=== PATIENT | male | born 1960 | race Caucasian/White ===

== ENCOUNTER 2020-11-05 18:54 | Emergency (ER) | payer MEDICARE, MEDICAID ==
[2020-11-05] MEDS ORDERED: HYDROmorphone 1 MG/ML Syringe IVPUSH ONE ×2 (19:26→20:37)
[2020-11-05] MEDS ORDERED: Cyclobenzaprine 10 MG Tab ONE (20:55)
[2020-11-05] MEDS ORDERED: Acetaminophen/oxyCODONE 325-5 MG Tab ONE (20:55)
[2020-11-05] MEDS ORDERED: Orphenadrine 60 MG/2 ML Inj IM ONE (21:03)
[2020-11-05] MEDS ORDERED: Take Home: Acetaminophen/oxyCODONE 325-5 MG, 2 Tab Pack PO ONE (21:03)
[2020-11-05] MEDS ORDERED: Take Home: Cyclobenzaprine 10 MG Tab, 4 Tab Pack PO ONE (21:07)
--- NOTE | 2020-11-05 21:09 | EDM.PDOC ---
ED HPI GENERAL MEDICAL PROBLEM - General Chief Complaint: General Stated Complaint: R) shoulder pain Time Seen by Provider: 11/05/20 18:54 Source of Information: Reports: Patient History Limitations: Reports: No Limitations - History of Present Illness INITIAL COMMENTS - FREE TEXT/NARRATIVE: He presents per [facility]. 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 Questions if he dislocated his shoulder. He had a total shoulder done in March [address] in [place] with Dr. Root at [facility] in [place]. He states the pain is severe at this time. If he tries to move it the pain is worse. He denies any pain down his arm or numbness. He denies any other trauma and has not fallen. Onset: Sudden Onset Date: 11/05/20 Location: Reports: Upper Extremity, Right Quality: Reports: Sharp, Stabbing Right Shoulder Pain Score (Numeric/FACES): 10 - Related Data Allergies Allergy/AdvReac Type Severity Reaction Status Date / Time Iodinated Contrast Media Allergy Swelling Verified 11/05/20 19:07 iopamidol [From Isovue-M] Allergy Change Verified 11/05/20 19:07 Mental Status Penicillins Allergy Anaphylactic Verified 11/05/20 19:07 Shock Home Meds: Home Meds Aspirin [Halfprin] 81 mg PO DAILY 08/28/19 [History] DULoxetine [Cymbalta] 60 mg PO BEDTIME 08/28/19 [History] Donepezil HCl [Aricept] 10 mg PO BEDTIME 08/28/19 [History] Levothyroxine 12.5 mg PO DAILY 08/28/19 [History] Loperamide [Imodium] 2 mg PO QID PRN 08/28/19 [History] Metoprolol Succinate [Toprol XL] 25 mg PO DAILY 08/28/19 [History] Mirtazapine 7.5 mg PO DAILY 08/28/19 [History] Pantoprazole Sodium [Protonix] 20 mg PO BID 08/28/19 [History] Pramipexole [Mirapex] 0.25 mg PO TID 08/28/19 [History] Pregabalin [Lyrica] 100 mg PO TID 08/28/19 [History] Sildenafil [Viagra] 100 mg PO DAILY PRN 08/28/19 [History] Vilazodone [Viibryd] 40 mg PO DAILY 08/28/19 [History] atorvaSTATin [Lipitor] 40 mg PO DAILY 08/28/19 [History] buPROPion HCL [Wellbutrin Xl] 150 mg PO DAILY 08/28/19 [History] Ibuprofen 800 mg PO ASDIRECTED 09/09/19 [History] Past Medical History Cardiovascular History: Reports: CAD, High Cholesterol, Hypertension, Stents Respiratory History: Reports: None Gastrointestinal History: Reports: GERD, Pancreatitis, Other (See Below) Other Gastrointestinal History: pancreatic problems Genitourinary History: Reports: None Musculoskeletal History: Reports: Fibromyalgia, Other (See Below) Other Musculoskeletal History: RIGHT SHOULDER TENINITIS. Right shoulder replacement 2020 Neurological History: Reports: Neuropathy, Peripheral, Parkinson's, Other (See Below) Other Neuro History: DEMENTIA. RESTLESS LEG SYNDROME Psychiatric History: Reports: Depression Endocrine/Metabolic History: Reports: Hypothyroidism, Obesity/BMI 30+ Other Endocrine/Metabolic History: hx of hypoglycemia, not diagnosed with anything specific Hematologic History: Reports: None Immunologic History: Reports: None Oncologic (Cancer) History: Reports: None Dermatologic History: Reports: None - Infectious Disease History Infectious Disease History: Reports: Chicken Pox - Past Surgical History Head Surgeries/Procedures: Reports: None HEENT Surgical History: Reports: Oral Surgery, Other (See Below) Other HEENT Surgeries/Procedures: eye lid lift Cardiovascular Surgical History: Reports: Coronary Artery Bypass, Coronary Artery Stent Other Cardiovascular Surgeries/Procedures: triple bypass in 1999 GI Surgical History: Reports: Cholecystectomy, Colonoscopy, EGD, Hernia Repair/Other Male Surgical History: Reports: None Endocrine Surgical History: Reports: None Neurological Surgical History: Reports: None Musculoskeletal Surgical History: Reports: Arthroscopic Knee, Shoulder Surgery Oncologic Surgical History: Reports: None Dermatological Surgical History: Reports: None Social & Family History - Family History Family Medical History: No Pertinent Family History - Tobacco Use Tobacco Use Status *Q: Current Some Day Tobacco User Years of Tobacco use: 2 Packs/Tins Daily: 2 - Caffeine Use Caffeine Use: Reports: Coffee Caffeine Use Comment: 6 cups daily - Recreational Drug Use Recreational Drug Use: Yes Recreational Drug Type: Reports: Marijuana/Hashish - Living Situation & Occupation Occupation: Employed ED ROS GENERAL - Review of Systems Review Of Systems: See Below Constitutional: Reports: No Symptoms Respiratory: Reports: No Symptoms Cardiovascular: Reports: No Symptoms GI/Abdominal: Reports: No Symptoms Musculoskeletal: Reports: Shoulder Pain Skin: Reports: No Symptoms Neurological: Reports: No Symptoms ED EXAM, GENERAL - Physical Exam Exam: See Below General Appearance: Alert, WD/WN, Severe Distress Respiratory/Chest: No Respiratory Distress, Lungs Clear, Normal Breath Sounds Cardiovascular: Regular Rate, Rhythm, No Edema Peripheral Pulses: 4+: Radial (L), Radial (R) Extremities: Other (Right shoulder is very tender with palpation or movement. He states that if he moves it he has severe spasms to the area. He has a swelling to the posterior shoulder that is protruding. It is soft to touch but very tender. Good sensation noted distally. Has full ROM to the hand and wrist.) Neurological: Alert, Oriented Skin Exam: Warm, Dry, Intact Course - Vital Signs Last Recorded V/S: Last Vital Signs Temp 98 F 11/05/20 18:57 Pulse 66 11/05/20 18:57 Resp 18 11/05/20 18:57 BP 125/91 H 11/05/20 18:57 Pulse Ox 95 11/05/20 18:57 - Orders/Labs/Meds Meds: Medications Discontinued Medications Generic Name Dose Route Start Last Admin Trade Name Jesse PRN Reason Stop Dose Admin Cyclobenzaprine HCl 1 packet 11/05/20 21:07 Take Home: Cyclobenzaprine 10 Mg, 4 Tab Pack PO 11/05/20 21:08 ONETIME ONE Cyclobenzaprine HCl 40 mg 11/05/20 20:55 Flexeril .ROUTE 11/05/20 20:56 .STK-MED ONE Hydromorphone HCl 2 mg 11/05/20 19:26 11/05/20 19:33 Dilaudid IVPUSH 11/05/20 19:27 2 mg ONETIME ONE Administration Hydromorphone HCl 2 mg 11/05/20 20:37 11/05/20 20:45 Dilaudid IVPUSH 11/05/20 20:38 2 mg ONETIME ONE Administration Orphenadrine Citrate 60 mg 11/05/20 21:03 11/05/20 21:07 Norflex IM 11/05/20 21:04 60 mg ONETIME ONE Administration Oxycodone/Acetaminophen 2 packet 11/05/20 21:03 Take Home: Acetaminophen/Oxycodon, 2 Tab Pack PO 11/05/20 21:04 ONETIME ONE Oxycodone/Acetaminophen 4 tab 11/05/20 20:55 Percocet 325-5 Mg .ROUTE 11/05/20 20:56 .STK-MED ONE - Re-Assessments/Exams Free Text/Narrative Re-Assessment/Exam: 11/05/20 xray was reviewed with radiologist and they question an acromian fracture and request a CT scan for further workup. This was accomplished and then results were discussed again. Fracture was identified. Pain is much improved once sling applied and he was able to relax this. 11/06/20 1000- Discussed CT with Dr. Root at [facility] and he agrees with the above treatment. He wants to leave him im sling and then see him in the clinic next week. continue to sling and use pain meds and muscle relaxants as needed. This information was relayed to the pt and he agrees and he will make his own appt to work with his ride. Meds sent to [facility] in [place]. Departure - Departure Time of Disposition: 21:09 Disposition: Home, Self-Care 01 Condition: Good Clinical Impression: Acromial fracture Qualifiers: Encounter type: initial encounter Fracture type: closed Fracture alignment: nondisplaced Laterality: right Qualified Code(s): S42.124A - Nondisplaced fracture of acromial process, right shoulder, initial encounter for closed fracture - Discharge Information *PRESCRIPTION DRUG MONITORING PROGRAM REVIEWED*: Not Applicable *COPY OF PRESCRIPTION DRUG MONITORING REPORT IN PATIENT FABIOLA: Not Applicable Referrals: PCP,Not In Area [Primary Care Provider] - Forms: ED Department Discharge Additional Instructions: take percocet 1 every 4 hours as needed for pain Ice to the area as needed for swelling and pain Flexeril 10 mg- take twice a day for muscle spasms Do not drive while taking theses meds. I will call you tomorrow after I contact [facility] to form a plan. Wear sling to help support the arm Do not use the arm until instructed to. Sepsis Event Note (ED) - Evaluation Sepsis Screening Result: No Definite Risk - Problem List & Annotations (1) Acromial fracture SNOMED Code(s): 8740854 Code(s): S42.123A - DISP FX OF ACROMIAL PROCESS, UNSP SHOULDER, INIT FOR CLOS FX Status: Acute Priority: High Qualifiers: Encounter type: initial encounter Fracture type: closed Fracture alignment: nondisplaced Laterality: right Qualified Code(s): S42.124A - Nondisplaced fracture of acromial process, right shoulder, initial encounter for closed fracture - Problem List Review Problem List Initiated/Reviewed/Updated: Yes
== END 2020-11-05 21:32 | disposition home or self-care (01) ==
LOC: CC.ED 18:54
DX: S42.124A Nondisplaced fracture of acromial process, right shoulder, initial encounter for closed fracture (principal); I25.10 Atherosclerotic heart disease of native coronary artery without angina pectoris; E78.00 Pure hypercholesterolemia, unspecified; I10 Essential (primary) hypertension; K21.9 Gastro-esophageal reflux disease without esophagitis; G62.9 Polyneuropathy, unspecified; G20 Parkinson's disease; E03.9 Hypothyroidism, unspecified; E66.9 Obesity, unspecified; Z68.26 Body mass index [BMI] 26.0-26.9, adult; Z91.041 Radiographic dye allergy status; Z88.0 Allergy status to penicillin; Z95.5 Presence of coronary angioplasty implant and graft; Z72.0 Tobacco use; W20.8XXA Other cause of strike by thrown, projected or falling object, initial encounter
CPT/HCPCS: 73030-RT; 73200-RT; 96372; 96374; 96376; 99284; 99284-25; A9270-GY; J1170; J2360

== ENCOUNTER 2022-09-22 08:42 | Emergency (ER) | payer MEDICARE, MEDICAID ==
[2022-09-22] MEDS: Lidocaine 1% 5 ML VIAL INJECT ONE (09:15)
[2022-09-22 09:23] LABS: AMPHETAMINES,URINE NEGATIVE (NEGATIVE); BARBITURATES,URINE NEGATIVE (NEGATIVE); BENZODIAZEPINE,URINE NEGATIVE (NEGATIVE); MDMA (ECSTASY), URINE NEGATIVE (NEGATIVE); METHADONE,URINE NEGATIVE (NEGATIVE); METHAMPHETAMINES,URINE NEGATIVE (NEGATIVE); OPIATES,URINE NEGATIVE (NEGATIVE); OXYCODONE,URINE NEGATIVE (NEGATIVE); PHENCYCLIDINE,URINE NEGATIVE (NEGATIVE); TCA,URINE NEGATIVE (NEGATIVE)
[2022-09-22 09:25] LABS: PTT,PARTIAL THROMBOPLSTIN TIME 23.9 SEC (23.2-32.3)
[2022-09-22 09:27] LABS: CHLORIDE,CL 102 mEq/L (98-106); ESTIMATED GFR 86 mL/min (>=60); SODIUM,NA 137 mEq/L (136-145)
[2022-09-22] MEDS: Acetaminophen 500 MG Tab PO ONE (10:00)
[2022-09-22] MEDS: Bacitracin/Neomycin/Polymyxin B Oint 0.9 GM U/D Packet TOP ONE (10:30)
[2022-09-22 15:23] VITALS: BP 151/81; PULSE 67
[2022-09-22] MEDS: Bacitracin/Neomycin/Polymyxin B Oint 0.9 GM U/D Packet ONE (15:38)
== END 2022-09-22 10:45 | disposition home or self-care (01) ==
LOC: CC.ED 08:42
DX: S01.01XA Laceration without foreign body of scalp, initial encounter (principal); I25.10 Atherosclerotic heart disease of native coronary artery without angina pectoris; I10 Essential (primary) hypertension; K21.9 Gastro-esophageal reflux disease without esophagitis; E03.9 Hypothyroidism, unspecified; E66.9 Obesity, unspecified; Z68.26 Body mass index [BMI] 26.0-26.9, adult; F03.90 Unspecified dementia, unspecified severity, without behavioral disturbance, psychotic disturbance, mood disturbance, and anxiety; Z91.041 Radiographic dye allergy status; Z88.5 Allergy status to narcotic agent; Z88.0 Allergy status to penicillin; Z79.82 Long term (current) use of aspirin; Z79.899 Other long term (current) drug therapy; W10.8XXA Fall (on) (from) other stairs and steps, initial encounter
CPT/HCPCS: 12001; 36415; 70450; 71045; 72125; 73110-LT; 80053; 80305-QW; 80307; 85025; 85610; 85730; 99283; A9270-GY